=== PATIENT | female | born 2000 | race Caucasian/White ===

== ENCOUNTER 2023-07-12 13:16 | Emergency (ER) | payer OTHER ==
[2023-07-12] MEDS ORDERED: Lidocaine 1% w/Epinephrine 1:100K 20 ML VIAL ONE (16:12)
[2023-07-12] MEDS ORDERED: Lidocaine 1% PF 5 ML VIAL ONE (16:31)
== END 2023-07-12 17:28 | disposition home or self-care (01) ==
LOC: ERS 13:16
DX: S01.511A Laceration without foreign body of lip, initial encounter (principal); S09.90XA Unspecified injury of head, initial encounter; W01.10XA Fall on same level from slipping, tripping and stumbling with subsequent striking against unspecified object, initial encounter
CPT/HCPCS: 12011; 99282